=== PATIENT | male | born 1990 | race Hispanic/Latino ===

== ENCOUNTER 2023-05-26 10:08 | Emergency (ER) | payer MEDICAID, SELFPAY ==
--- NOTE | ~2023-05-26 | CT_ITS ---
EXAMINATION: CT abdomen pelvis w con DATE: 05/26/2023 13:41 INDICATION: Right lower quadrant abdominal pain, sharp and stabbing, for 3 to 4 months TECHNIQUE: Computed tomography (CT) of the abdomen and pelvis was performed with 100 CC Omnipaque 350 intravenous contrast. Automated exposure control and iterative reconstruction technique were employe d. Exam dose: 497.12 mGy-cm total exam DLP. COMPARISON: None. FINDINGS: The lung bases are clear. Normal heart size. No pericardial or pleural effusion. The liver, gallbladder, bile ducts, spleen, pancreas, pancreatic duct, and adrenal glands and kidneys are unremarkable. No urinary tract calculus or hydroureteronephrosis. Normal caliber of the abdominal aorta. No intraperitoneal or retroperitoneal or pelvic mass lesion or adenopathy or ascites. The prostate gland and seminal vesicles are unremarkable. No evidence of appe ndicitis. No bowel obstruction, bowel wall thickening, pneumatosis or intraperitoneal free air is det ected. Small fat-containing umbilical hernia. Small fat-containing left inguinal hernia. Postoperative change of the left iliac bone. 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 Old fra cture deformity of left superior and inferior pubic rami. IMPRESSION: No etiology for right lower quadrant abdominal pain is detected; no evidence of appendic itis Reviewed, dictated and finalized at [facility]. Reviewed, dictated and finalized at [facility]. GUARD IMPRESSION: No etiology for right lower quadrant abdominal pain is detected; n o evidence of appendicitis
[2023-05-26 10:44] VITALS: BP 121/64; PULSE 59; RESP 18; TEMP 36.7; O2SAT 100
[2023-05-26 11:21] LABS: Basophils Percent Auto 0.3 % (0.2-1.2); Eosinophils Absolute Auto 0.1 K/mm3 (0-0.3); Eosinophils Percent Auto 1.8 % (0-4.4); Hematocrit 45.2 % (42.0-52.0); Hemoglobin 14.9 g/dL (14.0-18.0); Immature Granulocyte Absolute 0.04 K/mm3 (0.00-0.031); Immature Granulocyte Percent A 0.6 % (0-0.5); Lymphocytes Absolute Auto 2.47 K/mm3 (0.9-3.2); Lymphocytes Percent Auto 35.1 % (18.3-44.2); Mean Corpuscular Hemoglobin 29.7 pg (26-34); Mean Platelet Volume 10.8 fl (7.4-10.4); Monocytes Absolute Auto 0.6 K/mm3 (0.1-0.6); Neutrophils Absolute Auto 3.7 K/mm3 (1.3-6.7); Neutrophils Percent Auto 53.2 % (45.5-73.1); Platelet Count Result 250 k/mm3 (150-375); Red Blood Count 5.02 M/mm3 (4.6-6.20); Red Cell Distribution Width 12.5 % (11.5-14.5)
[2023-05-26 11:33] LABS: Alanine Aminotransferase 19 U/L (6-50); Albumin Level 4.7 g/dL (3.5-5.1); Alkaline Phosphatase 81 U/L (38-126); Anion Gap 10 mmol/L (8-16); Aspartate Amino Transferase 25 U/L (17-59); Bilirubin,Total 1.4 mg/dL (0.2-1.3); Blood Urea Nitrogen 18 mg/dL (9-20); Calcium 9.3 mg/dL (8.4-10.2); Carbon Dioxide 26 mmol/L (22-30); Chloride 104 mmol/L (98-107); Estimated CRCL calculation 117 ml/min; Estimated Glomerular Filt Rate > 60; Glucose 100 mg/dL (65-110); Lipase 142 U/L (23-300); Potassium 3.8 mmol/L (3.4-5.0); Sodium 140 mmol/L (137-145)
[2023-05-26 11:47] LABS: Appearance Urine Clear (Clear); Bilirubin Urine Negative (Negative); Blood Urine Negative (Negative); Color Urine Yellow (Yellow); Glucose Urine UA Negative (Negative); Ketones Urine Negative (Negative); Leukocyte Esterase Ur Negative LEU/UL (Negative); Nitrate Urine Negative (Negative); Protein Urine Negative (Negative); Specific Grav Ur 1.019 (1.001-1.035); Urobilinogen Urine 0.2 mg/dL (<2.0)
[2023-05-26 11:57] LABS: Add Urine Microscopic? NO
--- NOTE | 2023-05-26 12:00 | ED.ABDPAIN ---
HPI - Abdominal Pain General Chief Complaint: Abdominal Pain Stated Complaint: ABD PAIN Time Seen by Provider: 05/26/23 11:59 History of Present Illness HPI narrative: Patient is a 32 year old male with no PMH here with abdominal pain x 3-4 months. He notes that the abdominal pain is in his lower abdomen, worse on the left side, radiating into his bilateral flanks and into his testicles. He notes that the pain is associated with multiple daily bowel movements which vary between firm and soft. Patient notes he usually has about 3 bowel movements a day, does not have nocturnal defecation. He additionally notes some purulent drainage from near his anus. He states that he has had a lesion in that area for nearly 20 years but it just seems to have started draining over the same period of time. He notes some blood and purulent drainage from this area when bearing down and some pain in that area with defecation. He has felt some intermittent vomiting, subjective fevers and dizziness since these symptoms began. No urinary symptoms. He has had about a 10kg weight loss over the last few months. No personal history of IBD or IBS, never saw anyone in his home country. Moved here from [place] about 5 months ago with his family for work. He does not have insurance. He has never had a colonoscopy. No family history of IBD or colon cancer. 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 HEAD: Normocephalic, atraumatic. EYES: PERRLA and EOMI. ENT: Nares clear. Mucous membranes moist. NECK: Supple. CHEST: Clear to auscultation. No respiratory distress. HEART: Regular rate and rhythm. Normal peripheral pulses. ABDOMEN: Soft, tender in LLQ, no rebound or guarding, nondistended. RECTAL: (exam performed with alberto as manufacturing mechanic) small punctate sinus to right perianal area with scant purulent drainage. Skin tags present. No obvious fluctuance or skin discoloration. EXTREMITIES: Normal range of motion. No edema. SKIN: Warm, dry, no rash. NEURO: No focal deficits. Alert and oriented x3. PSYCH: Normal mood and affect. Course Course Emergency Course: Chart review performed. Patient here with abdominal pain x3-4 months. Triage vitals normal. No prior visits. Triage abdominal pain protocol reviewed. No leukocytosis. Chemistry grossly normal. UA negative. Patient seen evaluated, nontoxic appearing. History and exam concerning for possible IBD with perianal involvement, less likely perianal abscess. Stool samples ordered, CT abdomen pelvis with contrast ordered. CT abdomen pelvis negative. I did speak with Dr. Farah of GI regarding my concern for possible IBD with perianal disease given the skin tags and small draining sinus at 9 oclock position. He recommended adding on stool calprotectin, CRP and starting flagyl 500 mg TID for 3 weeks and giving him information for his clinic for follow up. Care coordination to discuss options for possible financial assistance. CRP negative. The results of pertinent diagnostic studies and exam findings were discussed. The patient?s provisional diagnosis and plan of care were discussed with the patient and present family. The patient and/or present family expressed understanding of the diagnosis and plan. The nurse was instructed to provide written instructions and appropriate follow-up information. The patient understands their need and responsibility to obtain additional follow-up as instructed. The risks of medications administered and prescribed were discussed with the patient and family present. Vital Signs Vital signs: Vital Signs Temperature 98.1 F 05/26/23 10:44 Pulse Rate 59 L 05/26/23 10:44 Respiratory Rate 18 05/26/23 10:44 Blood Pressure 121/64 05/26/23 10:44 Pulse Oximetry 100 05/26/23 10:44 Oxygen Delivery Room Air 0
--- NOTE | 2023-05-26 14:21 | PCCCNOTE ---
Jossie at [facility] to see pt and evaluate for options for insurance or assistance.
[2023-05-26 15:13] LABS: CRP < 0.5 mg/dL (<1.0)
[2023-05-30 07:42] LABS: Reference Lab Test Result Negative
== END 2023-05-26 15:29 | disposition home or self-care (01) ==
PROVIDERS: Emergency Medicine; Emergency Provider Student in an Organized Health Care Education/Training Program
DX: R10.30 Lower abdominal pain, unspecified (principal); L91.8 Other hypertrophic disorders of the skin
CPT/HCPCS: 36415; 74177; 80053; 81003; 83690; 85025; 86140; 87177; 87209; 87493; 99284; Q9967